=== PATIENT | male | born 1955 | race Caucasian/White ===

== ENCOUNTER 2023-04-15 08:00 | Outpatient (CLI) | payer BC, OTHER, SELFPAY ==
--- NOTE | ~2023-04-15 | CT_ITS ---
EXAMINATION: CT soft tissue neck w con DATE: 04/15/2023 08:33 INDICATION: Chronic disease of tonsils and adenoids. Left jaw pain. Dysphagia. TECHNIQUE: Computed tomography (CT) of the neck was performed with 75 mL Omnipaque-350 intravenous co ntrast. Automated exposure control and iterative reconstruction technique were employed. The dose-daja gth product was 450.83 mGy-cm. COMPARISON: None FINDINGS: There is moderate emphysema. There are no pathologically enlarged lymph nodes. There is mil d plaque in proximal left internal carotid artery with 0% stenosis relative to normal distal artery l umen diameter. There is a sialolith in left parotid gland. There is a 3 mm cyst in right palatine ton kyle. There is ill-defined mass of increased density in left base of tongue and floor of mouth measuri ng 3.3 x 3.2 x 3.0 cm. There is mild mucosal thickening in left maxillary sinus. There is severe cerv ical spondylosis. IMPRESSION: 1. Ill-defined mass involving left base of tongue and floor of mouth, which may be malignancy or infl ammation. Reviewed, dictated and finalized at location A. IMPRESSION: 1. Ill-defined mass involving left base of tongue and floor of mouth, which may be malignancy or inflammation.
[2023-04-15 08:23] LABS: Estimated Glomerular Filt Rate > 60
== END 2023-04-15 08:01 ==
LOC: GOSHIMG 08:02
PROVIDERS: PCP Internal Medicine; Visit Provider Otolaryngology
DX: R07.0 Pain in throat (principal); J35.9 Chronic disease of tonsils and adenoids, unspecified; K14.8 Other diseases of tongue
CPT/HCPCS: 70491; Q9967